=== PATIENT | male | born 2000 | race Caucasian/White ===

== ENCOUNTER 2020-02-13 17:09 | Outpatient (REF) | payer OTHER, SELFPAY ==
[2020-02-20 22:25] LABS: SARS-CoV-2 RNA Undetected (Undetected); SARS-CoV-2 Specimen Source Nasopharynx
== END 2020-02-13 17:29 ==
LOC: NCHCN 17:09
PROVIDERS: PCP Nurse Practitioner Family; Referring Provider Nurse Practitioner Family; Visit Provider Nurse Practitioner Family
DX: Z11.59 Encounter for screening for other viral diseases (principal); J02.9 Acute pharyngitis, unspecified
CPT/HCPCS: U0003